=== PATIENT | male | born 1940 | race Caucasian/White ===

== ENCOUNTER 2017-05-24 06:03 | Day surgery (SDC) | payer MEDICARE ==
[2017-05-24] VITALS (10 sets, daily range): BP systolic 136–157; BP diastolic 70–88; PULSE 66–87; RESP 11–17; O2SAT 92–99
[~2017-05-24] VITALS: Ht 172.7 cm; Wt 98.2 kg
[~2017-05-24 06:03] MED LIST: Bupivacaine Liposome 1.3% 20 mL Inj NERVEBLOCK PRN; CeFAZolin Inj 2 GM in IV Premix 1 EACH IV ONE; GLUC-167 PO; HYDR25TA4 PO; KEN25CR EXT; LISI-567 PO; Lactated Ringer's 1,000 ML IV ONE
[2017-05-24] MEDS ORDERED: Propofol 10,000 mCg/mL 20 mL Inj ONE (06:04)
[2017-05-24] MEDS ORDERED: Dexamethasone 4 mg/mL Inj ONE (06:04)
[2017-05-24] MEDS ORDERED: Rocuronium 10 mg/mL 5 mL Inj ONE (06:04)
[2017-05-24] MEDS ORDERED: Glycopyrrolate 0.2 MG/ML 1mL Inj ONE (06:04)
[2017-05-24] MEDS ORDERED: fentaNYL-PF 50 mCg/mL 2 mL Inj ONE (06:04)
[2017-05-24] MEDS ORDERED: Neostigmine 1 mg/mL 10 mL Inj ONE (06:04)
[2017-05-24] MEDS ORDERED: EPHEDrine/NS 5 mg/mL 5 mL Syringe ONE (06:04)
[2017-05-24] MEDS ORDERED: Ondansetron 2 mg/mL 2 mL Inj ONE (06:04)
[2017-05-24] MEDS ORDERED: Vancomycin 1,000mg/200 mL NS IV ONE (06:14)
[2017-05-24] MEDS ORDERED: Lactated Ringer's 1,000 ML IV ONE (06:49)
[2017-05-24] MEDS ORDERED: Tranexamic Acid 100 mg/mL 10 mL Inj ONE (07:47)
[2017-05-24] MEDS ORDERED: 0.9% Sodium Chloride 100 ML ONE (07:47)
[2017-05-24] MEDS ORDERED: Lactated Ringer's 500 ML IV PRN (07:57)
[2017-05-24] MEDS ORDERED: Lactated Ringer's 1,000 ML IV SCH (07:57)
--- NOTE | 2017-05-24 07:57 | PCM.HPANE ---
Patient Data Surgeon Admitting Provider: Attending Provider:Anup Sandoval MD Primary Care Physician:Kannan Taylor DO Other Provider:Shira Camachoingham Anesthesia Reason for Visit Left Knee Arthritis Ht/WT & BMI Height (Feet): 5 Height (Inches): 8.00 Weight (Kilograms): 98.250 Body Mass Index 32.00 Allergies Coded Allergies: No Known Allergies (Unverified , 05/13/17) Past Anesthesia History Anesthesia History: Denies:: Abnormal Airway, Anesthesia Reactions, Difficult Intubation, Fam Anesthesia Reaction, Fam Malignant Hypertherm, Malignant Hyperthermia Diabetes History Hx Diabetes?: No MRSA MRSA: No Medications Hypertension Medication: Yes Home Meds Incl Beta [place]: No Reported Medications Triamcinolone Acet (Triamcinolone Acetonide Cream)1 Applic/0.25 Gm Cr1 Applic EXT BID #60 GM Ref 0 05/13/17 Lisinopril 20 Mg [id number] Mg PO DAILY 30 Days Ref 0 05/13/17 Hydrochlorothiazide 25 Mg [id number] Mg PO DAILY 30 Days Ref 0 05/13/17 Glucosamine/D3/Boswellia Lilly (Glucosamine Complex Tablet)1 Each Tablet1 Each PO DAILY 05/13/17 History History of ENT Problems?: No HEENT History: Denies:: Abnormal Airway Cataracts (left eye surgery (bleeding)) Difficult Intubation Dysphagia Hearing Problem Sinus Problem TMJ Denture Type: None Teeth Condition: Missing Teeth Hx of Heart Problems?: Yes Cardiovascular History: Positive for:: Hypertension Denies:: AICD Abdominal Aortic Aneurism Cardiac Surgery Chest Pain Coronary Artery Disease Edema Heart Murmur Irregular Heartbeat Pacemaker Peripheral Vascular Rheumatic Fever Other Cardiac History: > 4 METS Hx of Respiratory Problem?: No Respiratory History: Denies:: Asthma COPD Emphysema Oxygen Administration Pneumonia Tuberculosis Use of C-PAP Machine Use of Inhalers / NEBS Hx Neurologic Problems?: No Neurological History: Denies:: Alzheimer's Disease CVA Dementia Dizziness Headaches Multiple Sclerosis Parkinson's Disease Seizures TIA Hx of GI Problems?: Yes Hx of Problems?: No (Cr. 1.7) Genitourinary History: Denies:: Kidney Stones Urinary Tract Infection HX of Peritoneal Dialysis: No Male Hx: Denies:: Prostate Problems Skin History: Denies:: History Skin Disorders? Pressure Ulcers Hx Musculoskeletal Problems?: Yes Musculoskeletal History: Positive for:: Degenerative Joint Musculoskeletal Trauma (left knee current admission problem ) Osteoarthritis (right knee also symptomatic ) Denies:: Back Injury Fibromyalgia Joint Replacement Myasthenia Gravis Hx of Psycho/Social Problems?: No Psycho Social History: Denies:: Anxiety Hx Depression Hx Surgeries?: Yes (eye surgery, tristan ) Hx Any Other Health Problems?: Yes Other History: Denies:: Cancer Thyroid Disease History Blood Transfusions: Positive for:: Accept Blood Products? Denies:: Blood Transfusions Hx Diabetes: No Alcoholic Drinks Per Day: 3-4 drinks weeklyHx Substance Use: NoHave You Smoked inLast 12 mo: No Stop/Bang S-Snoring: Do You Snore Loudly: No T-Tired: feel tired, fatigued: No O-Obsered: Observed not breath: No P-Blood Pressure: treated: Yes B- Body Mass Index > 35 kg/m2: No A- Age over 50: Yes N- Neck Large Circumference: No G- Gender Male: Yes DUSTIN Total Score: 3 DUSTIN Risk Assessment: High Risk, =/>3 Yes Risk Assessment Category Category 1A: Patient has history of documented sleep apnea, and HAS NOT received any narcotic, sedative or anesthesia administration during this stay. Category 1B: Patient has history of documented sleep apnea, and HAS received any narcotic , sedative or anesthesia administration during this stay Category 2: Patient has SUSPECTED Obstructive Sleep Apnea, and HAS received any narcotic , sedative or anesthesia administration during this stay. Category 3: Patient has SUSPECTED Obstructive Sleep Apnea and HAS NOT received narcotic, sedative or anesthesia administration during this stay. Category 4: Outpatient in Procedural Areas with known sleep apnea or who screen positive for High Risk via the STOP/BANG questionnaire. Exam Exam Vital Signs Vital Signs Date Time Temp Pulse Resp B/P Pulse Ox O2 Delivery O2 Flow Rate FiO2 05/24/17 06:25 36 66 17 151/75 99 Room Air General Appearance: Alert, Oriented X3, Cooperative, No Acute Distress HEENT/AIRWAY: MP 2 Lungs: Clear to Auscultation, Normal Air Movement Heart: Exam Unremarkable, Regular Rate/Rhythm, No Murmurs/Rubs/Gallops Meds/Labs/Diagnostics Admission Meds Current Medications Lactated Ringer's (Lr) 1,000 ml @ ud STK-MED ONCE IV Last administered on t 06:49; Start 05/24/17 at 06:49; Stop 05/24/17 at 06:50; Status DC Plan Impression Patient chart reviewed, patient interviewed and anesthestic plan with risks, benefits, and alternatives discussed, and informed consent obtained. NPO per Anesth. Guidelines: Yes ASA Physical Status: ASA2 Mod Systemic Disease Anesthetic Plan: GA Bene/Risks/Altern/Consents: Yes HP Complete Prior to Induction: Yes Dionisio Santamaria MD May 24, 2017 07:27
[2017-05-24] MEDS ORDERED: MetoCLOpramide 5 mg/mL 2 mL Inj IVPUSH PRN (08:00)
[2017-05-24] MEDS ORDERED: Phenylephrine 10,000 mCg/mL Inj IVPUSH PRN (08:00)
[2017-05-24] MEDS ORDERED: Ondansetron 2 mg/mL 2 mL Inj IVPUSH PRN (08:00)
[2017-05-24] MEDS ORDERED: EPHEDrine Sulfate 50 mg/mL Inj IVPUSH PRN (08:00)
[2017-05-24] MEDS ORDERED: fentaNYL-PF 50 mCg/mL 2 mL Inj IVPUSH PRN (08:00)
[2017-05-24] MEDS ORDERED: Atropine 0.4 mg/mL Inj IVPUSH PRN (08:00)
[2017-05-24] MEDS ORDERED: Labetalol 5 mg/mL 4 mL Inj IV PRN (08:00)
[2017-05-24] MEDS ORDERED: HYDROmorphone 1 mg/mL Inj IVPUSH PRN (08:00)
[2017-05-24] MEDS ORDERED: Bupivacaine Liposome 1.3% 20 mL Inj INFILTRATE ONE (08:01)
[2017-05-24] MEDS ORDERED: Gentamicin 40 mg/mL 2 mL Inj IRRIGATION ONE (08:01)
[2017-05-24] MEDS ORDERED: Bupivacaine-MPF 0.5% W/EPI 30 mL Inj INFILTRATE ONE (08:42)
[2017-05-24] MEDS ORDERED: Tranexamic Acid 100 mg/mL 10 mL Inj TOPICAL ONE (09:05)
[2017-05-24] MEDS ORDERED: HYDROcodone-APAP 5-325 mg Tablet PO PRN (09:15)
[2017-05-24] MEDS ORDERED: oxyCODONE-Acetamin 5-325 mg Tablet PO PRN (09:15)
[2017-05-24] MEDS ORDERED: HYDROmorphone 0.5 mg/0.5 mL iSecure Syringe ONE (10:16)
--- NOTE | 2017-05-24 10:22 | DRSVH ---
PROCEDURE: X-RAY LEFT KNEE, ONE OR TWO VIEWS ([id number]) INDICATIONS: check alignment. TECHNIQUE: 3 view(s) of the knee acquired. COMPARISON: [facility], CR, XR KNEE BILATERAL STANDING UP, 02/16/2017, 15:37. FINDINGS: Bones: Patient is status post knee joint arthroplasty. Hardware components are in expected position s. Visualized bony structures are intact. Soft tissues: Overlying postoperative changes are noted. IMPRESSION: Post operative merlene-arthroplasty as above. Dictated by: Susy Osullivan M.D. on 05/24/2017 at 9:18 Approved by: Susy Osullivan M.D. on 05/24/2017 at 9:20
[2017-05-24] MEDS ORDERED: hydrOXYzine Pamoate 25 mg Capsule ONE (10:23)
--- NOTE | 2017-05-24 11:10 | PCM.ANEP1 ---
Post Anesthesia PACU Phase 1 Assessment Vital Signs Vital Signs Date Time Temp Pulse Resp B/P Pulse Ox O2 Delivery O2 Flow Rate FiO2 05/24/17 10:25 36 87 14 152/79 98 Nasal Cannula 2 05/24/17 10:10 77 12 157/75 98 Nasal Cannula 2 05/24/17 10:00 77 15 153/76 96 Nasal Cannula 2 05/24/17 09:45 36.7 76 12 148/88 96 Nasal Cannula 2 05/24/17 09:40 81 11 150/76 96 Nasal Cannula 2 05/24/17 09:35 81 14 146/75 94 Nasal Cannula 2 05/24/17 09:30 82 11 155/79 92 Room Air 05/24/17 09:27 36.8 82 17 147/77 98 Simple Mask 8 05/24/17 06:25 36 66 17 151/75 99 Room Air Anesthetic Administered: GA Level of Alertness: Awake, talking QUINN's with Equal Strength: Yes Pain: No Nausea or Vomiting: No CV Function & Hydration Stable: Yes Airway Device: Endotrachial Tube Oxygen Delivery: Simple Mask Lungs: Clear to Auscultation, Normal Air Movement PACU Phase 2 Assessment Complications: No Follow up Care: N/A Patient Instructions Provided: N/A Dionisio Santamaria MD May 24, 2017 11:10
[2017-05-24] MEDS ORDERED: hydrOXYzine Pamoate 25 mg Capsule PO PRN (11:40)
--- NOTE | 2017-06-08 13:28 | OP ---
[address] [address] OPERATIVE REPORT PATIENT: NADIA MORAN : 1940 MR#: [id number] ADMIT: 05/24/2017 JOB ID: [id number] DATE OF SURGERY: 05/24/2017 PREOPERATIVE DIAGNOSIS(ES): Advanced medial compartment osteoarthritis, left knee. POSTOPERATIVE DIAGNOSIS(ES): Advanced medial compartment osteoarthritis, left knee. PROCEDURE: Medial unicondylar knee arthroplasty. SURGEON: Anup Sandoval M.D. COMPOSITION PROFESSOR: Diana Cabrera PA-C. Asphalt Heater Tender required due to the major complexity of the operation. INDICATIONS: This gentleman has had severe progressive disability associated with advanced medial compartment osteoarthritis. He elects to proceed with a unicompartmental knee arthroplasty understanding and accepting the potential for risks and complications, which include but is not limited to infection, thromboembolic, neurovascular events, as well as a potential for implant failure and progressive arthritis in unresurfaced compartments. Understanding this, he wishes to proceed. PROCEDURE: The patient was prepped and draped in the usual sterile fashion. An anteromedial approach was made to the knee. The dissection was carried down. Patellar osteophyte was removed. The alignment apparatus was assembled. The proximal tibial cut was made. Tibial cut was completed with a sagittal saw and the bone fragments were removed. The spacer block was applied and the distal femoral cut was made. The femur was sized to an appropriate sized chamfer cutting block, fixed in appropriate position and rotation, and drill holes and chamfer cuts were made. The tibia was also sized appropriately and stabilization holes were made. Trial reduction performed and a 9 mm polyethylene was placed which produced appropriate alignment, soft tissue tension and tracking and range of motion. All meniscal tissue and osteophytes were removed. Pressurized lavage was followed by pressurized cementation. Excess cement was removed during the curing process. Final construct was assembled and the patient's tourniquet was let down. Hemostasis was achieved. Deep Hemovac drain was left. Deep closure with number #2 Quill deep followed by 2-0 Vicryl, 3-0, and a 4-0 intracuticular stitch. Implant sizes were noted on the implant record sheet.
== END 2017-05-24 23:59 | disposition home or self-care (01) ==
LOC: SAS 06:03
PROVIDERS: ATTEND Orthopaedic Surgery
DX: M17.12 Unilateral primary osteoarthritis, left knee (principal); I10 Essential (primary) hypertension; M17.11 Unilateral primary osteoarthritis, right knee
CPT/HCPCS: 27446; 73560; C1713; C1776; J0131; J0690; J1100; J1170; J1580; J2405; J2710; J3010; J3370; J7120; Q0177